=== PATIENT | female | born 1970 | race Caucasian/White ===

== ENCOUNTER 2017-10-10 10:19 | Outpatient (CLI) | payer OTHER | END 2017-10-10 10:20 | disposition home or self-care (01) | LOC: BICMAMMO 10:19 | PROVIDERS: ATTEND Family Medicine | DX: Z12.31 Encounter for screening mammogram for malignant neoplasm of breast (principal); Z80.3 Family history of malignant neoplasm of breast | CPT/HCPCS: 77063; 77067 ==

== ENCOUNTER 2018-01-14 15:24 | Outpatient (CLI) | payer OTHER | END 2018-01-14 15:25 | disposition home or self-care (01) | LOC: BICULT 15:24 | PROVIDERS: ATTEND Psychiatry & Neurology Neurology | DX: E04.1 Nontoxic single thyroid nodule (principal) | CPT/HCPCS: 76536 ==

== ENCOUNTER 2018-09-11 12:33 | Outpatient (CLI) | payer OTHER ==
--- NOTE | 2018-09-11 14:28 | RAD ---
LUMBAR SPINE 2 VIEWS: Date: 09/11/18 HISTORY: Spondylosis. COMPARISON: None. FINDINGS: There is moderate levoscoliosis of lumbar spine. No acute fracture. Mild narrowing at the L4-5 and L5 -S1 disc spaces. Paraspinal soft tissues are unremarkable IMPRESSION: Moderate levoscoliosis lumbar spine. POS: [facility]
== END 2018-09-11 12:34 | disposition home or self-care (01) ==
LOC: BICRAD 12:33
PROVIDERS: ATTEND Internal Medicine Rheumatology
DX: M47.816 Spondylosis without myelopathy or radiculopathy, lumbar region (principal); M41.9 Scoliosis, unspecified
CPT/HCPCS: 36415; 72100; 81003; 82306; 82570; 83520; 84156; 85613; 85652; 86140; 86146; 86147; 86160; 86200; 86225; 86235; 86812

== ENCOUNTER 2018-10-13 07:49 | Outpatient (CLI) | payer OTHER ==
--- NOTE | 2018-10-20 13:19 | MMO ---
Bilateral MAMMO Bilat Screen [facility]. CLINICAL HISTORY: Patient is 48 years old and is seen for screening. The patient has the following family history of breast cancer: maternal aunt, at age 60, and ovarian cancer. The patient has no personal history of cancer. VIEWS: The views performed were: bilateral craniocaudal with tomosynthesis and bilateral mediolateral oblique with tomosynthesis. FILMS COMPARED: The present examination has been compared to prior imaging studies performed at on 10/13/2013, 10/14/2014, 10/17/2015, 10/17/2016 and 10/10/2017. MAMMOGRAM FINDINGS: The breasts are heterogeneously dense, which could obscure a lesion on mammography. There are no suspicious masses, calcifications or areas of architectural distortion. IMPRESSION: THERE IS NO MAMMOGRAPHIC EVIDENCE OF MALIGNANCY. A ROUTINE FOLLOW-UP MAMMOGRAM IN 1 YEAR IS RECOMMENDED. THE RESULTS OF THIS EXAM WERE SENT TO THE PATIENT. ACR BI-RADS Category 1 - Negative MAMMOGRAPHY NOTE: 1. A negative mammogram report should not delay a biopsy if a dominant of clinically suspicious mass is present. 2. Approximately 10% to 15% of breast cancers are not detected by mammography. 3. Adenosis and dense breasts may obscure an underlying neoplasm.
== END 2018-10-13 07:50 | disposition home or self-care (01) ==
LOC: BICMAMMO 07:49
PROVIDERS: ATTEND Family Medicine
DX: Z12.31 Encounter for screening mammogram for malignant neoplasm of breast (principal); Z80.3 Family history of malignant neoplasm of breast; Z80.41 Family history of malignant neoplasm of ovary
CPT/HCPCS: 77063; 77067

== ENCOUNTER 2018-10-21 09:46 | Outpatient (CLI) | payer OTHER ==
--- NOTE | 2018-10-21 12:08 | ULT ---
THYROID ULTRASOUND: Date: 10/21/18 INDICATION: Follow-up thyroid nodule. Comparison made to thyroid ultrasound exam dated 01/14/18. FINDINGS: Both lobes are homogeneous. Both lobes have symmetric size and are unchanged from prior exam. Both lo bes have normal size with right measuring 4.6 x 1.1 x 1.7 cm. Left lobe measures 4.4 x 0.8 x 1.5 cm. There continues to be a small, hypoechoic nodule in the superior left lobe measuring 4-5 mm, unchange d from the prior exam. IMPRESSION: Stable tiny hypoechoic nodule in the left lobe. Thyroid is otherwise unremarkable and unchanged. POS: [facility]
== END 2018-10-21 09:47 | disposition home or self-care (01) ==
LOC: ULT 09:46
PROVIDERS: ATTEND Internal Medicine Rheumatology
DX: E04.1 Nontoxic single thyroid nodule (principal)
CPT/HCPCS: 76536

== ENCOUNTER 2018-12-11 07:35 | Outpatient (CLI) | payer OTHER ==
--- NOTE | 2018-12-11 08:23 | ULT ---
Exam: Pelvic ultrasound HISTORY: Pelvic pain; family history of ovarian cancer COMPARISON: None TECHNIQUE: Multiple grayscale and color Doppler images were obtained in a transabdominal and transvag inal pelvic ultrasound. Spectral analysis of the Doppler waveforms of the ovaries were performed. FINDINGS: CERVIX: No evidence of nabothian cysts. UTERUS: Normal in size without focal abnormality. ENDOMETRIAL STRIPE: 6 mm. No free fluid is seen in the pelvis. RIGHT OVARY: Normal flow without focal mass. LEFT OVARY: Normal flow without focal mass. IMPRESSION: No significant pelvic abnormality
== END 2018-12-11 07:36 | disposition home or self-care (01) ==
LOC: BICULT 07:35
PROVIDERS: ATTEND Family Medicine
DX: Z80.41 Family history of malignant neoplasm of ovary (principal)
CPT/HCPCS: 76856

== ENCOUNTER 2019-04-23 16:00 | Outpatient (CLI) | payer OTHER | END 2019-04-23 16:01 | disposition home or self-care (01) | LOC: SLEEPLAB 16:00 | PROVIDERS: ATTEND Family Medicine | DX: G47.33 Obstructive sleep apnea (adult) (pediatric) (principal); R06.83 Snoring | CPT/HCPCS: 95806 ==

== ENCOUNTER 2019-11-05 09:42 | Outpatient (CLI) | payer OTHER, MEDICARE ==
--- NOTE | 2019-11-05 12:25 | ULT ---
THYROID ULTRASOUND: Date: 11/05/2019 HISTORY: Follow-up left thyroid nodule. COMPARISON: 10/21/2018. TECHNIQUE: Multiplanar Quiroz scale and color Doppler images were obtained in a thyroid ultrasound. FINDINGS: There is a hypoechoic region in the left thyroid lobe measuring 7.0 mm in greatest dimension. This me asures slightly larger than on the prior examination. No other thyroid nodules are seen. No suspiciou s calcifications are seen within this nodule, which is poorly circumscribed. The thyroid lobes measur e 5.1 and 4.9 cm in length on the right and left, respectively. IMPRESSION: Left thyroid nodule. This is a TI-RADS Category 3 lesion. Given its extremely small size, no follow-u p or FNA is recommended for recent ultrasound recommendations on TI-RADS. POS: [facility]
== END 2019-11-05 09:43 | disposition home or self-care (01) ==
LOC: BICULT 09:42
PROVIDERS: ATTEND Family Medicine
DX: E04.1 Nontoxic single thyroid nodule (principal); E07.89 Other specified disorders of thyroid
CPT/HCPCS: 76536

== ENCOUNTER 2019-11-19 14:36 | Outpatient (CLI) | payer OTHER ==
--- NOTE | 2019-11-20 08:55 | MMO ---
Bilateral MAMMO Bilat Screen [facility]. CLINICAL HISTORY: Patient is 49 years old and is seen for screening. The patient has the following family history of breast cancer: maternal aunt, at age 60, and ovarian cancer. The patient has no personal history of cancer. VIEWS: The views performed were: bilateral craniocaudal with tomosynthesis and bilateral mediolateral oblique with tomosynthesis. FILMS COMPARED: The present examination has been compared to prior imaging studies performed at [facility] on 10/17/2016, 10/10/2017 and 10/13/2018. This study has been interpreted with the assistance of computer-aided detection. MAMMOGRAM FINDINGS: The breasts are heterogeneously dense, which could obscure a lesion on mammography. There are stable benign appearing calcifications seen in both breasts. There are no suspicious masses, suspicious calcifications, or new areas of architectural distortion. IMPRESSION: THERE IS NO MAMMOGRAPHIC EVIDENCE OF MALIGNANCY. A ROUTINE FOLLOW-UP MAMMOGRAM IN 1 YEAR IS RECOMMENDED. THE RESULTS OF THIS EXAM WERE SENT TO THE PATIENT. ACR BI-RADS Category 2 - Benign finding MAMMOGRAPHY NOTE: 1. A negative mammogram report should not delay a biopsy if a dominant of clinically suspicious mass is present. 2. Approximately 10% to 15% of breast cancers are not detected by mammography. 3. Adenosis and dense breasts may obscure an underlying neoplasm. Reported by: RADHA BRISENO MD Electonically Signed: [id number]
== END 2019-11-19 14:37 | disposition home or self-care (01) ==
LOC: BICMAMMO 14:36
PROVIDERS: ATTEND Family Medicine
DX: Z12.31 Encounter for screening mammogram for malignant neoplasm of breast (principal); Z80.3 Family history of malignant neoplasm of breast
CPT/HCPCS: 77063; 77067

== ENCOUNTER 2022-02-28 19:22 | Observation (INO) | payer BC, MEDICARE ==
[2022-02-28 19:54] LABS: #Basophils 0.2 thou/uL (0.0-0.2); #Eosinphils 0.2 thou/uL (0.0-0.7); #Lymphocytes 3.2 thou/uL (1.20-3.40); #Monocytes 0.8 thou/uL (0.11-0.59); #Neutrophils 8.7 thou/uL (1.40-6.50); %Basophils 1.2 % (0.0-1.0); %Eosinophils 1.9 % (0.0-10.0); %Lymphocytes 24.5 % (21.0-51.0); %Monocytes 5.8 % (0.0-10.0); %Neutrophils 66.6 % (42.0-75.0); Hemoglobin 13.9 g/dL (12.0-16.0); Mean Corpuscular HGB CONC 33.1 g/dL (32.0-36.0); Mean Corpuscular Hemoglobin 28.3 pg (27.0-31.0); Mean Corpuscular Volume 85.7 fL (78.0-98.0); Mean Platelet Volume 7.6 fL (7.4-10.4); Platelet Count 276 thou/uL (130-400); RBC Distribution Width 11.6 % (11.5-14.5); Red Blood Cell (RBC) Count 4.91 mill/uL (4.20-5.40); White Blood Cell (WBC) Count 13.1 thou/uL (4.8-10.8)
[2022-02-28 20:16] LABS: ALT (SGPT) 32 U/L (8-55); AST (SGOT) 61 U/L (5-34); Albumin 4.4 g/dL (3.5-5.0); Alkaline Phosphatase 124 U/L (40-110); Anion Gap 16 mmol/L (10-20); BUN (Urea Nitrogen) 16 mg/dL (7.0-18.7); Bilirubin, Total 0.5 mg/dL (0.2-1.2); Calc. Creatinine Clearance 0 mL/min (70-130); Calcium 9.7 mg/dL (7.8-10.44); Carbon Dioxide 25 mmol/L (22-29); Chloride 101 mmol/L (98-107); Estimated GFR 81; Globulin 3.9 g/dL (2.4-3.5); Glucose 102 mg/dL (70-105); Potassium 3.7 mmol/L (3.5-5.1); Protein, Total 8.3 g/dL (6.0-8.3); Sodium 138 mmol/L (136-145)
[2022-02-28] MEDS ORDERED: Ketorolac Tromethamine 30 MG/ML VIAL ONE (23:26)
[2022-02-28] MEDS ORDERED: Dicyclomine 20 MG/2 ML VIAL ONE (23:26)
[2022-02-28 23:32] LABS: Bacteria/HPF 4+ HPF (None Seen); Bilirubin Negative (Negative); Blood, Urine Negative (Negative); Clarity Turbid (Clear); Glucose, Urine (Dipstick) Normal (Negative); Ketone, Urine Trace mg/dL (Negative); Leukocyte Negative Leu/uL (Negative); Nitrite Negative (Negative); Protein, Urine (Dipstick) 30 mg/dL (Neg-Trace); RBC/HPF 0-3 HPF (0-3); Specific Gravity, Urine 1.034 (1.002-1.036); Squamous Epithelial 0-3 HPF (0-3); Urobilinogen Normal mg/dL (Less than 2); pH, Urine 5.5 (5.0-9.0)
[2022-02-28] MEDS ORDERED: Piperacillin/Tazobactam 3.375 GM VIAL ONE (23:59)
[2022-03-01 01:05] LABS: SARS-CoV-2 NAA Rapid Test Not Detected (NotDetected)
[2022-03-01 01:43] VITALS: BMI 35.0
[2022-03-01] MEDS: Sodium Chloride 0.9% 1,000 ML IV SCH ×2 (02:36→08:54)
[2022-03-01] MEDS: Ketorolac Tromethamine 30 MG/ML VIAL IVP SCH ×2 (08:54→17:12)
[2022-03-01 09:16] VITALS: TEMP 98.2
[2022-03-01] MEDS ORDERED: Levofloxacin 500 mg/D5W 100 ml Premix Bag ONE (10:28)
[2022-03-01] MEDS ORDERED: Iopamidol 30 ML ONE (13:01)
[2022-03-01] MEDS ORDERED: Bupivacaine/Epinephrine 0.25% 30 ML VIAL ONE (13:01)
[2022-03-01] MEDS ORDERED: SUGAMMADEX SODIUM 200 MG/2 ML VIAL ONE (13:06)
[2022-03-01] MEDS ORDERED: fentaNYL Citrate/PF 100 MCG/2 ML SYRINGE ONE (13:06)
[2022-03-01] MEDS ORDERED: Famotidine/PF 20 mg/2ml Vial ONE (13:06)
[2022-03-01] MEDS ORDERED: Dexamethasone 20 MG/5 ML VIAL ONE (13:15)
[2022-03-01] MEDS ORDERED: Lidocaine 1% PF 5 ML VIAL ONE (13:15)
[2022-03-01] MEDS ORDERED: Rocuronium Bromide 10 MG/ML (10ML VIAL) ONE (13:15)
[2022-03-01] MEDS ORDERED: PROPOFOL 200 MG/20 ML VIAL ONE (13:15)
[2022-03-01] MEDS ORDERED: Ondansetron PF 4 MG/2 ML Vial ONE ×2 (13:15→15:09)
[2022-03-01] MEDS ORDERED: Metoclopramide HCl 10 MG/2 ML VIAL ONE (13:15)
[2022-03-01] MEDS ORDERED: Promethazine HCl 25 MG/ML VIAL IM PRN (14:29)
[2022-03-01] MEDS ORDERED: Ondansetron HCl/PF 4 MG/2 ML Vial IVP PRN (14:29)
[2022-03-01] MEDS ORDERED: Meperidine HCl/PF 25 MG/ML VIAL SLOW IVP PRN (14:29)
[2022-03-01] MEDS ORDERED: Promethazine HCl 25 MG/ML VIAL IVPB PRN (14:29)
[2022-03-01] MEDS ORDERED: Fentanyl 100 MCG/2 ML VIAL ONE (15:13)
[2022-03-01] MEDS ORDERED: Promethazine HCl 25 MG/ML VIAL ONE (15:40)
[2022-03-01] MEDS ORDERED: Furosemide 40 MG TAB PO PRN (16:13)
[2022-03-01 16:40] VITALS: BP 167/89
[2022-03-01] MEDS ORDERED: ERENUMAB SC SCH (17:11)
[2022-03-01] MEDS ORDERED: Methocarbamol 500 MG TAB PO SCH (21:00)
[2022-03-02] MEDS ORDERED: Escitalopram Oxalate 10 mg Tablet PO SCH (09:00)
[2022-03-02] MEDS ORDERED: Cholecalciferol 1,000 UNITS (25 MCG) TAB PO SCH (09:00)
[2022-03-02] MEDS ORDERED: NALTREXONE HCL PO SCH (09:00)
[2022-03-02] MEDS ORDERED: [UNRECOGNIZED DRUG - OTHER] PO SCH (09:00)
[2022-03-02] MEDS ORDERED: Ascorbic Acid 500 mg Chewable Tablet PO SCH (09:00)
[2022-03-02] MEDS ORDERED: Fenofibrate 48 MG TAB PO SCH (09:00)
[2022-03-02] MEDS ORDERED: BUPROPION HCL PO SCH (09:00)
[2022-03-02] MEDS ORDERED: Cyanocobalamin (Vitamin B-12) 1,000 MCG TAB PO SCH (09:00)
== END 2022-03-01 18:31 | disposition home or self-care (01) ==
LOC: ERS 19:22 → SURG A 23:48
PROVIDERS: ADMIT Surgery; ATTEND Surgery
PROC: 0FT44ZZ Resection of Gallbladder, Percutaneous Endoscopic Approach (ICD-10-PCS; principal; 2022-03-01)
PROC: BF101ZZ Fluoroscopy of Bile Ducts using Low Osmolar Contrast (ICD-10-PCS; 2022-03-01)
DX: K80.10 Calculus of gallbladder with chronic cholecystitis without obstruction (principal); K82.1 Hydrops of gallbladder; K66.0 Peritoneal adhesions (postprocedural) (postinfection); R79.89 Other specified abnormal findings of blood chemistry; G93.9 Disorder of brain, unspecified; I44.0 Atrioventricular block, first degree; I08.1 Rheumatic disorders of both mitral and tricuspid valves; G47.30 Sleep apnea, unspecified; M45.9 Ankylosing spondylitis of unspecified sites in spine; E78.5 Hyperlipidemia, unspecified; K21.9 Gastro-esophageal reflux disease without esophagitis; Z79.899 Other long term (current) drug therapy; Z88.0 Allergy status to penicillin; Z88.5 Allergy status to narcotic agent; Z88.7 Allergy status to serum and vaccine; Z88.8 Allergy status to other drugs, medicaments and biological substances; Z20.822 Contact with and (suspected) exposure to COVID-19
CPT/HCPCS: 36415; 47532; 76705; 81003; 81015; 83690; 84484; 88304; 93005; 96365; 96372; 96375; 96376; C1713; G0378; J1100; J1610; J1885; J1956; J2405; J2543; J2550; J2704; J2765; J3010; J7050; Q9967; S0028; U0002

== ENCOUNTER 2024-04-27 13:34 | Outpatient (CLI) | payer OTHER | END 2024-04-27 13:35 | disposition home or self-care (01) | LOC: BICULT 13:34 | PROVIDERS: ATTEND Nurse Practitioner Family | DX: N39.0 Urinary tract infection, site not specified (principal) | CPT/HCPCS: 76770 ==